=== PATIENT | female | born 1980 | race African-American/Black ===

== ENCOUNTER 2019-08-17 11:30 | Emergency (ER) | payer MEDICAID ==
[~2019-08-17] VITALS: Ht 165.1 cm; Wt 117.9 kg
[~2019-08-17 11:30] MED LIST: KEFLEX500 MG ORAL; NKM; ZOFRAN ODT4 MG ORAL
[2019-08-17 11:32] VITALS: BP 112/74
--- NOTE | 2019-08-17 11:54 | Emergency Room Report ---
History of Present Illness General Chief Complaint: Dizziness Source: Patient Present Illness HPI Patient presents with complaints of general weakness dizziness off and on reports that she has general malaise as well Denies any headache denies any chest pain or shortness of breath she does report some diarrhea as well Denies any active abdominal pain denies any fevers or rash Denies any recent travel Allergies: Coded Allergies: No Known Allergies (Verified , 01/04/11) COVID-19 Screening Contact w/high risk pt: No Recent Travel to affected area: No Experienced COVID-19 symptoms?: No COVID-19 Testing 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: No Patient History Past Medical History: see triage record Last Menstrual Period: 04/12/2019 Reviewed Nursing Documentation: PMH: Agreed; PSxH: Agreed Nursing Documentation-PMH Past Medical History: No Stated History Review of Systems All Other Systems: negative except mentioned in HPI Physical Exam Vital Signs Date Time Temp Pulse Resp B/P (MAP) Pulse Ox O2 Delivery O2 Flow Rate FiO2 08/17/19 11:32 97.9 78 16 112/74 96 Room Air Sp02 EP Interpretation: reviewed, normal General Appearance: well appearing, no apparent distress Head: normocephalic, atraumatic Eyes: bilateral eye PERRL, bilateral eye EOMI ENT: EOM grossly intact Neck: supple Respiratory: lungs clear, no respiratory distress, no retraction Cardiovascular #1: regular rate, rhythm Gastrointestinal: non tender, soft Musculoskeletal: normal inspection Neurologic: alert, oriented x3 Psychiatric: normal inspection Skin: no rash Lymphatic: no adenopathy Medical Decision Making Diagnostic Impression: Primary Impression: Dizziness Additional Impression: Viral syndrome ER Course Given the patient's history and presentation multiple differentials and consideration including but not limited to viral infection, dehydration, infectious process given some of the complaints that she has diarrhea And body ache covid-19 also considered Patient does not appear septic or toxic does have significant blood work initiated Patient is maintaining oral intake and does not appear clinically dehydrated and therefore will have continued oral hydration Patient's blood work reveals a mildly low white blood cell count and there is a sign of increased lymphocytes raising increased concern for viral process Also raising concern for possible covid-19 Currently patient will not require inpatient care therefore covid-19 testing is not available Patient is recommended to follow closely as an outpatient process also outpatient testing is available in multiple sites Patient was discussed regarding search and evaluation of area close to her and discharged for close outpatient follow-up white Blood cell 3.1 Elevated lymphocytes Chemistry normal UA no acute process Rhythm Strip Diag. Results EP Interpretation: yes Rate: 77 Rhythm: NSR, no PVC's, no ectopy Last Vital Signs Date Time Temp Pulse Resp B/P (MAP) Pulse Ox O2 Delivery O2 Flow Rate FiO2 08/17/19 11:46 78 16 Room Air 08/17/19 11:32 97.9 112/74 (87) 96 Status: improved Disposition: HOME, SELF-CARE Condition: Improved Referrals: [facility],REFERRING (PCP) Additional Instructions: Patient is provided with the discharge instructions notified to follow up with primary doctor in the next 2-3 days otherwise return to the er with any worsening symptoms. Please note that this report is being documented using [employer] technology. This can lead to erroneous entry secondary to incorrect interpretation by the dictating instrument. Omega Tobin DO Aug 17, 2019 11:54
[2019-08-17 12:35] LABS: HEMATOCRIT 44.5 % (37.0-47.0); HEMOGLOBIN 13.5 G/DL (12.0-16.0); MEAN CORPUSCULAR VOLUME 90 FL (80-99); PLATELET COUNT 169 K/UL (150-450); RED BLOOD COUNT 4.95 M/UL (4.20-5.40); WHITE BLOOD COUNT 3.1 K/UL (4.8-10.8)
[2019-08-17 12:42] LABS: APPEARANCE,URINE CLEAR; BILIRUBIN, URINE NEGATIVE (NEGATIVE); GLUCOSE, URINE (UA) NEGATIVE (NEGATIVE); KETONES,URINE 1+ (NEGATIVE); LEUKOCYTE ESTERASE ,URINE 1+ (NEGATIVE); NITRITE,URINE NEGATIVE (NEGATIVE); PH,URINE 6 (4.5-8.0); PROTEIN,URINE 2+ (NEGATIVE); UROBILINOGEN,URINE NORMAL MG/DL (0.0-1.0)
[2019-08-17 12:44] LABS: COLOR,URINE YELLOW
[2019-08-17 12:54] LABS: ANION GAP 9 mmol/L (5-15); BLOOD UREA NITROGEN 11 mg/dL (7-18); CALCIUM 8.6 MG/DL (8.5-10.1); CARBON DIOXIDE 27 MMOL/L (21-32); CHLORIDE 106 MMOL/L (98-107); CREATININE 0.9 MG/DL (0.55-1.30); POTASSIUM 3.8 MMOL/L (3.5-5.1); SODIUM 142 MMOL/L (136-145)
[2019-08-17 12:59] LABS: ALANINE AMINOTRANSFERASE 32 U/L (12-78); ALBUMIN 3.6 G/DL (3.4-5.0); ALBUMIN/GLOBULIN RATIO 0.9 (1.0-2.7); ALKALINE PHOSPHATASE 50 U/L (46-116); ASPARTATE AMINO TRANSFERASE 29 U/L (15-37); BILIRUBIN,TOTAL 0.2 MG/DL (0.2-1.0)
[2019-08-17 13:23] VITALS: BP 112/74
== END 2019-08-17 13:24 | disposition home or self-care (01) ==
LOC: EMR 11:48
DX: R53.1 Weakness (principal); R42 Dizziness and giddiness; R53.83 Other fatigue
CPT/HCPCS: 36415; 80053; 80307; 81003; 81025; 85007; 85025; Z7502; 99283